=== PATIENT | female | born 1945 | race Caucasian/White ===

== ENCOUNTER → 2017-03-23 | Outpatient (CLI) | payer MEDICARE, OTHER ==
--- NOTE | 2017-03-26 08:54 | MRI ---
EXAM DESCRIPTION: Lumbar Spine w/o Contrast CLINICAL HISTORY: LOW BACK PAIN COMPARISON: None Available. TECHNIQUE: MRI of the lumbar spine is performed according to our usual protocol with axial and sagittal multi sequence imaging. FINDINGS: Grade 1 anterior listhesis of L4 on L5. Disc desiccation noted at all levels with intervertebral disc height at L2-3 and L4-5. Marrow signal and vertebral body heights are unremarkable. The conus terminates at L1-L2. It is unremarkable. L1-2: No spinal canal or neuroforaminal narrowing. L2-3: Moderate facet degeneration. Intervertebral disc height loss. 4 mm circumferential disc osteophyte complex. The midline diameter spinal canal is adequate at 13 mm. Mild left neuroforaminal narrowing. L3-4: Moderate facet degeneration. Mild bilateral neuroforaminal narrowing. No spinal canal narrowing. L4-5: Facet degeneration and ligamentum flavum thickening. Grade 1 anterior listhesis of L4 and L5. The midline diameter spinal canal is adequate at 1 cm. Moderate bilateral neuroforaminal narrowing, right greater than left. L5-S1: Moderate right facet degeneration. Anterior disc osteophyte complex with endplate edema noted. The midline diameter of the spinal canal is widely patent measuring 1.6 cm in diameter. Moderate bilateral neuroforaminal narrowing. IMPRESSION: 1. Today's exam demonstrates multilevel degenerative change including facet degeneration. This is most pronounced at L4-5 in which the facet degeneration has resulted in rate 1 anterior listhesis of L4 and L5. Electronically signed by: Edinson Pantoja MD 03/26/2017 8:54 AM CDT
== END | disposition home or self-care (01) ==
LOC: MRI 10:05
PROVIDERS: ATTEND Family Medicine
DX: M54.5 Low back pain (principal); M47.896 Other spondylosis, lumbar region

== ENCOUNTER → 2017-10-16 | Outpatient (CLI) | payer MEDICARE, OTHER | END | disposition home or self-care (01) | LOC: GMAL 10:29 | PROVIDERS: ATTEND Family Medicine | DX: D51.3 Other dietary vitamin B12 deficiency anemia (principal); E55.9 Vitamin D deficiency, unspecified ==

== ENCOUNTER → 2018-07-30 | Outpatient (CLI) | payer MEDICARE, OTHER | LOC: GMAL 11:03 | PROVIDERS: ATTEND Family Medicine | DX: I10 Essential (primary) hypertension (principal); R53.83 Other fatigue; E78.4 Other hyperlipidemia; E34.9 Endocrine disorder, unspecified ==

== ENCOUNTER → 2020-02-06 | Outpatient (CLI) | payer MEDICARE, OTHER | LOC: GMAL 10:31 | PROVIDERS: ATTEND Family Medicine | DX: D51.3 Other dietary vitamin B12 deficiency anemia (principal); E55.9 Vitamin D deficiency, unspecified; E78.49 Other hyperlipidemia; Z79.899 Other long term (current) drug therapy ==

== ENCOUNTER → 2020-10-25 | Outpatient (CLI) | payer MEDICARE, OTHER ==
--- NOTE | 2020-10-26 08:15 | RAD ---
3 radiographs of the pelvis and right hip Indication: PAIN IN RIGHT HIP Comparison: None Impression: Moderate to severe right hip osteoarthritis with subtle chondrocalcinosis. At least moderate left hip osteoarthritis. 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 No acute fracture identified. Evaluation for fracture is limited given the degree of osteopenia. If high clinical concern for acute fracture, correlation with MRI recommended given its greater sensitivity in the osteopenic patient. If the patient cannot tolerate MRI imaging or more urgent imaging is required, CT could be performed, however it is less sensitive in the osteopenic patient when compared to MRI. Electronically signed by: Temo Downing MD 10/26/2020 8:13 AM [facility]
== END ==
LOC: RAD 12:05
PROVIDERS: ATTEND Family Medicine
DX: M51.36 Other intervertebral disc degeneration, lumbar region (principal); M16.0 Bilateral primary osteoarthritis of hip; M19.90 Unspecified osteoarthritis, unspecified site; M85.9 Disorder of bone density and structure, unspecified; M11.251 Other chondrocalcinosis, right hip

== ENCOUNTER → 2020-11-08 | Outpatient (CLI) | payer MEDICARE, OTHER ==
--- NOTE | 2020-11-08 10:42 | MRI ---
Study: MRI of the Right Hip. Indication: PAIN IN RIGHT HIP Technique: Multiplanar, multi sequence MRI of the right hip was obtained without intravenous contrast. Comparison: None. Findings: Full-thickness tearing at the base of the anterior superior right hip labrum. Extensive grade 4 chondrosis anterior superior, superior, and posterior aspects of the right hip joint with multifocal areas of cortical remodeling and subchondral cystic change. Small joint line osteophytes. Tiny joint effusion. No acute fracture or osteonecrosis. High-grade tendinosis and likely chronic partial thickness tearing of the right gluteus minimus/medius tendon insertions and to a lesser extent the left gluteus minimus/medius tendon insertions. Moderate right and mild left greater trochanter bursal edema. Tendinosis bilateral hamstring tendon origins. Severe pubic symphysis osteoarthritis. L5-S1 disc disease noted. At least mild to moderate left hip osteoarthritis. Impression: Severe right hip osteoporosis with tiny joint effusion and associated anterior superior labral tearing. No acute fracture or osteonecrosis. Additional findings as above. Electronically signed by: Temo Downing MD 11/08/2020 10:40 AM [facility]
== END ==
LOC: MRI 08:02
PROVIDERS: ATTEND Family Medicine
DX: M81.0 Age-related osteoporosis without current pathological fracture (principal); M25.451 Effusion, right hip; S73.191A Other sprain of right hip, initial encounter